=== PATIENT | male | born 1985 | race Caucasian/White ===

== ENCOUNTER 2017-10-18 16:42 | Emergency (ER) | payer OTHER ==
[~2017-10-18] VITALS: Ht 180.3 cm; Wt 79.4 kg
[~2017-10-18 16:42] MED LIST: BACTRIM DS TAB1 EACH PO; KEFLEX500 MG PO; NICOTINE TRANSD21 M1 TRANSDERM; NOHOMEMEDICATIONS; PERCOCET; TRIAMCINOLONE A80 G2 TOP; ULTRAM 50MG TAB50 MG PO; ZOFRAN 4 MG ORAL4 MG PO; ZPAK PO; ZYVOX600 MG PO
[2017-10-18] MEDS ORDERED: KEFLEX500 M1 PO (18:33)
[2017-10-18 18:41] VITALS: BP 143/102
[2017-10-19] MEDS ORDERED: PERCOCET 5-3251 EACH PO (00:21)
== END 2017-10-18 18:42 | disposition home or self-care (01) ==
LOC: M.ERS 16:42
DX: R04.0 Epistaxis (principal); F17.210 Nicotine dependence, cigarettes, uncomplicated

== ENCOUNTER 2017-10-18 20:04 | Emergency (ER) | payer OTHER ==
[~2017-10-18] VITALS: Ht 180.3 cm; Wt 81.7 kg
[~2017-10-18 20:04] MED LIST changes: +KEFLEX500 M1 PO
[2017-10-18 20:54] LABS: HEMATOCRIT 44.8 % (42.0-52.0); HEMOGLOBIN 15.5 gm/dL (14.0-18.0); MCH 34.1 pg (26.0-34.0); MCHC 34.6 g/dL (28.0-37.0); MCV 98.6 fL (80.0-100.0); MPV 10.4 fl. (7.2-11.1); RBC 4.54 mil/uL (4.50-6.00); RDW-CV 12.7 % (10.5-14.5); WBC 10.2 thou/uL (4.0-11.0)
[2017-10-18 21:04] LABS: APTT 25.7 Seconds (25.0-31.3); CALCIUM 9.3 mg/dL (8.5-10.1); CREATININE 1.1 mg/dL (0.6-1.3); INR 1.1; POTASSIUM 3.4 mmol/L (3.5-5.1); PROTIME 10.8 Seconds (9.20-11.50)
[2017-10-18 21:09] LABS: TOTAL BILIRUBIN 0.3 mg/dL (<0.1-1.0); TOTAL PROTEIN 7.7 g/dL (6.4-8.2)
[2017-10-18 22:59] VITALS: BP 150/100
[2017-10-19] MEDS ORDERED: PERCOCET 5-3251 EACH PO (00:21)
== END 2017-10-19 00:36 | disposition home or self-care (01) ==
LOC: M.ERS 20:04
PROVIDERS: Physician Assistant
DX: R04.0 Epistaxis (principal); F17.210 Nicotine dependence, cigarettes, uncomplicated

== ENCOUNTER 2017-10-20 15:45 | Emergency (ER) | payer OTHER ==
[~2017-10-20] VITALS: Ht 180.3 cm; Wt 81.7 kg
[~2017-10-20 15:45] MED LIST changes: +PERCOCET 5-3251 EACH PO
[2017-10-20 17:40] VITALS: BP 140/90
== END 2017-10-20 17:54 | disposition home or self-care (01) ==
LOC: M.ERS 15:45
DX: R04.0 Epistaxis (principal)

== ENCOUNTER 2017-11-10 12:23 | Emergency (ER) | payer OTHER ==
[~2017-11-10] VITALS: Ht 180.3 cm; Wt 81.7 kg
[2017-11-10] MEDS ORDERED: AMOXICILLIN 50500 MG PO (12:40)
[2017-11-10 12:46] VITALS: BP 145/98
== END 2017-11-10 12:47 | disposition home or self-care (01) ==
LOC: M.ERS 12:23
DX: J01.90 Acute sinusitis, unspecified (principal); F17.210 Nicotine dependence, cigarettes, uncomplicated

== ENCOUNTER 2018-06-12 18:48 | Emergency (ER) | payer OTHER ==
[~2018-06-12] VITALS: Ht 180.3 cm; Wt 79.4 kg
[~2018-06-12 18:48] MED LIST changes: +AMOXICILLIN 50500 MG PO
[2018-06-12] MEDS ORDERED: AMOXICILLIN 50500 MG PO (20:11)
[2018-06-12] MEDS ORDERED: ACETAMINOPHEN-1 EAC1 PO (20:11)
[2018-06-12 20:39] VITALS: BP 121/78
== END 2018-06-12 20:40 | disposition home or self-care (01) ==
LOC: M.ERS 18:48
DX: J02.0 Streptococcal pharyngitis (principal); F17.210 Nicotine dependence, cigarettes, uncomplicated